=== PATIENT | female | born 1975 | race Caucasian/White ===

== ENCOUNTER 2021-06-26 08:41 | Emergency (ER) | payer OTHER, SELFPAY ==
[2021-06-26 08:52] VITALS: BP 103/76; PULSE 83; RESP 16; TEMP 36.7; O2SAT 99
--- NOTE | 2021-06-26 09:01 | ED.URI ---
HPI - URI/Sore Throat General Chief Complaint: Upper Respiratory Infection Stated Complaint: LOYOLA/COUGH/NO TASTE/SMELL Time Seen by Provider: 06/26/21 09:01 Source: patient and RN notes reviewed Mode of arrival: ambulatory Limitations: no limitations History of Present Illness HPI Narrative: 46-year-old female presents to the [facility] with complaints of headache, cough no taste, smell. Had spent 2 hours with someone who was tested positive for Covid on Wednesday. Reports body aches, headache and cough. Denies chest pain or shortness of breath. No abdominal pain. Related Data Allergies Allergy/AdvReac Type Severity Reaction Status Date / Time No Known Allergies Allergy Verified 06/26/21 09:16 Review of Systems Review of Systems: All systems reviewed & are unremarkable except as noted in HPI and below Constitutional: Constitutional: Reports no additional constitutional complaints, Denies chills and Denies fever(s) Eyes: Eyes: Reports no additional eye complaints ENT: Reports as per HPI Cardiovascular: Cardiovascular: Reports no additional cardiovascular complaints Respiratory: Respiratory: Reports no additional respiratory complaints, Reports cough, Denies dyspnea and Denies wheezing Gastrointestinal: Gastrointestinal: Reports no additional gastrointestinal complaints, Denies abdominal pain, Denies nausea and Denies vomiting Musculoskeletal: Musculoskeletal: Reports no additional musculoskeletal complaints Integumentary/Breasts: Skin/Breast: Reports system reviewed and no additional complaints, except as docu Neurologic: Reports system reviewed and no additional complaints, except as documented Psychiatric: Psychiatric: Reports no additional psychiatric complaints Endocrine: Endocrine: Reports as per HPI and Reports fatigue Allergic/Immunologic: Allergic/Immunologic: Reports no additional allergic/immunologic complaints [facility] Family History Family History Father Family history of mental disorder Mother Hypertension Grandparent Family history of malignant neoplasm of bone Social History Social History Smoking status: Heavy tobacco smoker Alcohol intake: current Comments At the time of my signature, I reviewed and agree with the nursing past medical, surgical, social, and family history. There is no relevant family history pertinent to the patient complaint. Exam Const: General: no acute distress, alert and ill appearing acutely Nutritional Appearance: well nourished Orientation/consciousness: patient oriented x3 Limitations: no limitations HENMT: Head: normal to inspection Ears: external ears normal, TM's normal bilaterally and EAC's normal Eyes: Conjunctivae: conjunctivae normal Pupils: Equal, round and reactive pupils present Neck: Neck: normal visual inspection, no lymphadenopathy and no meningeal signs Chest: Chest palpation & inspection: normal inspection of the chest Resp: Effort & Inspection: normal respiratory effort and no use of accessory muscles Auscultation: clear to auscultation bilaterally, no crackles, no rales, no rhonchi and no wheezes Cardio: Rate: regular rate Rhythm: regular rhythm : General: Yes no CVA tenderness Urinary Catheter: Urinary Catheter: patent and draining Back/Spine/Pelvis: Back: no CVA tenderness Skin: General skin exam: normal color Rashes: no rashes Wounds: no wounds Neuro: General: patient oriented x3, moves all extremities, no meningeal signs and no focal motor deficits Speech: normal speech Gait exam (Neuro): Normal gait present Extrem: General: normal to inspection Psych: Appearance: grossly normal and well kempt Mental Status: mental status grossly normal Affect: normal affect Attitude: cooperative Thought content: Yes Normal thought content present Course Course Emergency Course: Discharge instructions reviewed with patient, as well
[2021-06-27 18:35] LABS: SARS-CoV-2 RNA PCR Positive
== END 2021-06-26 09:30 | disposition home or self-care (01) ==
PROVIDERS: Emergency Provider Nurse Practitioner; PCP Family Medicine
DX: U07.1 COVID-19 (principal); F17.200 Nicotine dependence, unspecified, uncomplicated
CPT/HCPCS: 99203; C9803; G0463; U0003; U0005

== ENCOUNTER 2021-11-03 14:25 | Emergency (ER) | payer OTHER, SELFPAY ==
--- NOTE | ~2021-11-03 | XR_ITS ---
XR wrist LT min 3V DATE: 11/03/2021 16:40 INDICATION: Left wrist injury today. Anterolateral lump. TECHNIQUE: 4 views COMPARISON: None FINDINGS: No fracture or dislocation, periosteal reaction or bone destruction, joint space narrowing, erosive change or chondrocalcinosis. IMPRESSION: Negative Reviewed, dictated and finalized at location A. RY CONTROL TENDER IMPRESSION: Negative
[2021-11-03 14:26] VITALS: BP 130/61; PULSE 69; RESP 18; TEMP 36.3; O2SAT 100
--- NOTE | 2021-11-03 16:30 | ED.GENADULT ---
HPI - General Adult General Chief complaint: Extremity Injury, Upper Stated complaint: LEFT WRIST INJURY Time Seen by Provider: 11/03/21 14:52 Source: patient Mode of arrival: ambulatory Limitations: no limitations History of Present Illness HPI narrative: Patient presents for evaluation of left wrist injury. She indicates she works at [employer] and was pulling a pallet when she felt a pop in her left wrist. She has noted a bulge in the area since that time. She denies any significant pain. She is right hand dominant. No paresthesias. No additional complaints or concerns. Related Data Allergies Allergy/AdvReac Type Severity Reaction Status Date / Time No Known Allergies Allergy Verified 11/03/21 14:39 Review of Systems Review of Systems: CONSTITUTIONAL: Denies fever, chills, or sweats. EYES: Denies visual changes, redness, or discharge. ENT: Denies rhinorrhea, congestion, sore throat, or otalgia. CARDIOVASCULAR: Denies chest pain, palpitations, or edema. RESPIRATORY: Denies cough or dyspnea. GASTROINTESTINAL: Denies abdominal pain, nausea, vomiting, or diarrhea. GENITOURINARY: Denies dysuria or hematuria. SKIN: Reports bulge in left wrist. Denies rash or itching. MUSCULOSKELETAL: Denies back pain, joint pain, or myalgia. NEUROLOGIC: Denies headache, numbness, dizziness, or weakness. PSYCHIATRIC: Denies anxiety or depression. [facility] Past Medical History Medical History (Updated 11/03/21 @ 17:49 by Juan Jose Boothe, COUNTY RECORDS MANAGEMENT OFFICER, ) No pertinent past medical history Surgical History Surgical History No pertinent past surgical history Family History Family History Father Family history of mental disorder Mother Hypertension Grandparent Family history of malignant neoplasm of bone Social History Social History Smoking status: Heavy tobacco smoker Alcohol intake: current Substance use: never Living arrangements: with family Gender identity (if verbalized by the patient): Female Sexual Orientation (if Verbalized by the Patient): Straight or Heterosexual Spiritual care concerns: No Exam Narrative: GENERAL: Well-appearing, well-nourished, and in no acute distress. HEAD: Normocephalic, atraumatic. EYES: PERRLA and EOMI. ENT: Nares clear, no rhinorrhea or epistaxis. Mucous membranes moist. Oropharynx without tonsillar hypertrophy exudate or other lesions. Bilateral TMs pearly stevens nonbulging NECK: Supple. No adenopathy or masses. No carotid bruits or JVD CHEST: Clear to auscultation. No respiratory distress. No wheezes rales or rhonchi HEART: Regular rate and rhythm. No murmur heard. Normal peripheral pulses. ABDOMEN: Soft, nontender, nondistended, normal active bowel sounds. EXTREMITIES: Normal range of motion. No edema. SKIN: Approximately 1 cm indurated mass to medial aspect of left wrist. NEURO: No focal deficits. Alert and oriented x3. PSYCH: Normal mood and affect. Course Course Emergency Course: This is a 46-year-old female who presented with concerns regarding a bulge in left wrist after pulling a pallet at work earlier today. Exam is consistent with ganglion cyst. X-ray was negative. Advised velcro wrist splint may be helpful. She was provided with ishmael wrap as velcro wrist splint not available. NSAIDs may help. Follow up with ortho and return for worsening symptoms. Pt in agreement with plan of care. Vital Signs Vital signs: Vital Signs Temperature 36.3 C L 11/03/21 14:26 Pulse Rate 69 11/03/21 14:26 Respiratory Rate 18 11/03/21 14:26 Blood Pressure 130/61 11/03/21 14:26 Pulse Oximetry 100 11/03/21 14:26 Temperature 36.3 C L 11/03/21 14:26 Pulse Rate 69 11/03/21 14:26 Respiratory Rate 18 11/03/21 14:26 Blood Pressure 130/61 11/03/21 14:26 Pulse Oximetry 100 02
== END 2021-11-03 18:23 | disposition home or self-care (01) ==
PROVIDERS: Emergency Provider Nurse Practitioner; PCP Family Medicine
DX: M67.432 Ganglion, left wrist (principal); F17.200 Nicotine dependence, unspecified, uncomplicated
CPT/HCPCS: 73110; 99283

== ENCOUNTER 2024-01-21 15:30 | Emergency (ER) | payer OTHER, SELFPAY ==
[2024-01-21 15:31] VITALS: BP 129/73; PULSE 73; RESP 16; TEMP 37.1; O2SAT 99
--- NOTE | 2024-01-21 17:02 | ED.UPPEXIN ---
HPI - Extremity Injury (Upper) General Chief Complaint: Extremity Injury, Upper Stated Complaint: arm injury Time Seen by Provider: 01/21/24 16:14 Source: patient Mode of arrival: ambulatory Limitations: no limitations History of Present Illness HPI narrative: Patient is right-hand dominant. Today while at work she accidentally caught her right forearm on a nail which punctured the skin somewhat deeply by her report but at an angle. No pain medications taken yet though she states she isn't really having pain. Does not know last tetanus shot. . Related Data Allergies Allergy/AdvReac Type Severity Reaction Status Date / Time BEE STINGS Allergy Mild Hives Uncoded 01/21/24 15:34 [facility] Past Medical History Medical History (Updated 01/24/24 @ 06:34 by Viola Shaw MD) No pertinent past medical history Right hand dominant Surgical History Surgical History (System 11/17/21 @ 16:42 by Carolyne Son) No pertinent past surgical history Family History Family History Father Family history of mental disorder Mother Hypertension Grandparent Family history of malignant neoplasm of bone Social History Social History (Updated 01/24/24 @ 06:34 by Viola Shaw MD) Smoking status: Heavy tobacco smoker Alcohol intake: current Substance use: never Living arrangements: with family Occupation/Education: occupation Additional occupation/education comments: [employer] Gender identity (if verbalized by the patient): Female Sexual Orientation (if Verbalized by the Patient): Straight or Heterosexual Spiritual care concerns: No Exam Narrative: GENERAL: Well-appearing, well-nourished, and in no acute distress. HEAD: Normocephalic, atraumatic. EYES: Non injected, non icteric ENT: Nares clear, no rhinorrhea or epistaxis. NECK: Supple. CHEST: Speaking in full sentences. No respiratory distress. HEART: Regular rate and rhythm. Strong radial pulse. ABDOMEN: Soft, nondistended. EXTREMITIES: Normal range of motion. No edema. SKIN: Warm, dry. 1cm wound right forearm, bleeding well controlled. No palpable foreign body remaining. No cellulitis or induration. NEURO: No focal deficits. Alert and oriented x3. PSYCH: Normal mood Course Vital Signs Vital signs: Vital Signs Temperature 98.7 F 01/21/24 15:31 Pulse Rate 73 01/21/24 15:31 Respiratory Rate 16 01/21/24 15:31 Blood Pressure 129/73 01/21/24 15:31 Pulse Oximetry 99 01/21/24 15:31 Temperature 98.7 F 01/21/24 15:31 Pulse Rate 73 01/21/24 15:31 Respiratory Rate 16 01/21/24 15:31 Blood Pressure 129/73 01/21/24 15:31 Pulse Oximetry 99 01/21/24 15:31 MDM - Extremity Injury (Upper) MDM Narrative Medical decision making narrative: In the emergency department they are afebrile with vital signs within normal limits. Patient offered pain medication but she declined. Plain film imaging had initially been ordered based on chief complaint however the wound does appear to be fairly superficial and appears that the nail traversed the area of injury parallel to rather than perpendicular to bony structures thus very low suspicion for fracture. Patient's tetanus updated. Wound irrigated and bleeding well controlled. Bandage to be applied and discussed wound care. Stable for discharge, advised to follow up as needed. Discharge Plan Discharge Clinical Impression: Puncture wound of forearm Patient Disposition: Home, Self-Care Condition: Stable Instructions: Antibiotic Form, Puncture Wound (ED) Additional Instructions: You can take acetaminophen/Tylenol for pain as needed. Your tetanus shot was updated today. Follow up with Your primary care provider as needed. Return to the emergency department with any new or worsening symptoms. Prescriptions: New acetaminophen 500 mg capsule 1,000 mg PO Q6H PRN (Reason: pain) Qty: 20
[2024-01-21] MEDS: TETANUS,DIPHTHERIA,AC PERTUSSIS ADULT (0.5 ML) BOOSTRIX IM (17:11)
== END 2024-01-21 17:17 | disposition home or self-care (01) ==
PROVIDERS: Emergency Provider Student in an Organized Health Care Education/Training Program; PCP Family Medicine
DX: S51.831A Puncture wound without foreign body of right forearm, initial encounter (principal); W45.0XXA Nail entering through skin, initial encounter; Z23 Encounter for immunization
CPT/HCPCS: 90471; 90715; 99282

== ENCOUNTER 2025-06-21 01:43 | Day surgery (SDC) | payer BC, SELFPAY ==
[2025-06-11 10:21] VITALS: BMI 26.6
--- OUTSIDE RECORDS SUMMARY | 2025-06-21 01:45 | XMS_ITS | Clinical Summary ---
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 Gender Identity Not on file Sexual Orientation Not on file Plan of Treatment Health Maintenance Due Date Last Done Comments Cervical Cancer Screening Pa p Smear (Age 30 to 64) Every 3 Years 1975 Colorectal Cancer Screening Colonoscopy (10 Years) 1975 Annual Physical 1978 Hepatitis C 1993 DTaP, Tdap and Td Vaccines ( 1 - Tdap) 1994 Hepatitis B Vaccines (1 of 3 - 19+ 3-dose series) 1994 Cervical Cancer Screening Pa p with HPV Testing (Age 30 to 64) Every 5 Years 2005 Cervical Cancer Screening with HPV 2005 Mammogram Screening 2015 Pneumococcal Vaccine: 50+ Ye ars (1 of 1 - PCV) 2025 Zoster Vaccines (1 of 2) 2025 COVID-19 Vaccine ( - 2023-2 5 season) 2025 Meningococcal B Vaccine Aged Out No l onger eligible based on patient's age to complete this topic Meningococcal Vaccine Aged Out No bogdan maryann eligible based on patient's age to complete this topic RSV Immunizations Under 20 Months Aged Out No longer eligible based on patient's age to complete this topic Insurance [employer]
[2025-06-21 07:37] VITALS: BP 104/77; PULSE 88; RESP 20; TEMP 35.9; O2SAT 97; BMI 25.7
--- NOTE | 2025-06-21 07:41 | P.PNAN_ITS ---
Anes - Initial Pre Proc Eval Procedure: Operation Date: 06/21/25 09:00 Proposed Procedures p Screening Colonoscopy - Ethan Nye MD Date/Time: 06/21/25 07:41 Surgeon: Ethan Nye MD Pre Op Diagnosis: Screening Patient Data Age: 50 Gender: F Height: 1.75 m Weight: 79.2 kg Last Vital Signs Temp 35.9 C L 06/21/25 07:37 Pulse 88 06/21/25 07:37 Resp 20 06/21/25 07:37 BP 104/77 06/21/25 07:37 Pulse Ox 97 06/21/25 07:37 O2 Del Method Room Air 06/21/25 07:37 Allergies Allergy/AdvReac Type Severity Reaction Status Date / Time BEE STINGS Allergy Mild Hives Uncoded 03/01/25 13:11 Home Medications ?Medication ?Instructions ?Recorded ?Confirmed ?Type No Home Medications 03/01/25 06/11/25 H istory Patient hx anesthesia problems: none Family hx anesthesia problems: none Results Review: All pre-operative results and documents have been reviewed as part of the pre- operative evaluation. [facility] Past Medical History Medical History Right hand dominant No pertinent past medical history Surgical History Surgical History No pertinent past surgical history Family History Family History Father Alcohol use disorder Mother Hypertension CLL (chronic lymphocytic leukemia) Grandparent Family history of malignant neoplasm of bone Social History Social History Social History: Smoking packs per day: 1 Smoking cigarettes per day: 20.0 Years smoked: 30 Smoking pack-years: 30.00 Smoking status: Current every day smoker Tobacco type: cigarettes Alcohol intake: current Alcohol use details: rarely Substance use: never Substance use type: does not use Do You Feel Safe in your Home?: Yes Lack of Transportation: No Lack of Food: Never True Current Housing: I Have Housing Concerned About Future Housing: No Difficulty Paying Gas/Electric Bills: No Difficulty Paying for Meds: No Currently Unemployed: No Education: Don't Know Difficulty w/ Childcare or Family Care: No Living arrangements: with family Additional living arrangements comments: with sp Occupation/Education: occupation Additional occupation/education comments: [employer] Gender identity (if verbalized by the patient): Female Sexual Orientation (if Verbalized by the Patient): Straight or Heterosexual Anes - Eval Final PreProcedure Day of Procedure 06/21/25 07:41 Patient weight: normal Heart: regular rate and rhythm Lungs: clear to auscultation Airway: Mallampati scale class II Neurological: alert and oriented Last oral intake: >/= 8 hours ASA classification: II Emergent: no Anesthetic plan: proceed Anesthesia type and monitoring: general GIVS and standard monitoring Results Review: All pre-operative results and documents have been reviewed as part of the pre- operative evaluation. Informed Consent: The patient's anesthetic plan and its attendant risks and benefits were discussed with the patient/family/POA. Questions were solicited and answers provided to the satisfaction of the patient/family/POA.
[2025-06-21] MEDS: LACTATED RINGERS 1,000 ML 150 ML IV CONT (07:45)
--- NOTE | 2025-06-21 08:33 | P.HP_ITS ---
History of Present Illness History of Present Illness Consent: Risks, benefits, and alternatives have been discussed and questions answered. Patient agrees to proceed with procedure. Chief complaint: Screening Narrative: Disha Albarado is a 50 year old female here for first screening colonoscopy Review of Systems Review of Systems: All systems reviewed & are unremarkable except as noted in HPI and below PMFSH Past Medical History Medical History (Updated 06/21/25 @ 08:34 by Ethan Nye MD) Colon cancer screening Right hand dominant No pertinent past medical history Surgical History Surgical History No pertinent past surgical history Family History Family History Father Alcohol use disorder Mother Hypertension CLL (chronic lymphocytic leukemia) Grandparent Family history of malignant neoplasm of bone Social History Social History Social History: Smoking packs per day: 1 Smoking cigarettes per day: 20.0 Years smoked: 30 Smoking pack-years: 30.00 Smoking status: Current every day smoker Tobacco type: cigarettes Alcohol intake: current Alcohol use details: rarely Substance use: never Substance use type: does not use Do You Feel Safe in your Home?: Yes Lack of Transportation: No Lack of Food: Never True Current Housing: I Have Housing Concerned About Future Housing: No Difficulty Paying Gas/Electric Bills: No Difficulty Paying for Meds: No Currently Unemployed: No Education: Don't Know Difficulty w/ Childcare or Family Care: No Living arrangements: with family Additional living arrangements comments: with sp Occupation/Education: occupation Additional occupation/education comments: [employer] Gender identity (if verbalized by the patient): Female Sexual Orientation (if Verbalized by the Patient): Straight or Heterosexual Meds Home Medications and Allergies Home Medications ?Medication ?Instructions ?Recorded ?Confirmed ?Type No Home Medications 03/01/25 06/11/25 H istory Allergies Allergy/AdvReac Type Severity Reaction Status Date / Time BEE STINGS Allergy Mild Hives Uncoded 03/01/25 13:11 Vital Signs Vital Signs - 24 hr 06/21/25 07:37 Temperature 96.7 F L Pulse Rate 88 Respiratory Rate 20 Blood Pressure 104/77 Pulse Oximetry 97 Oxygen Delivery Room Air Exam Const: General: comfortable and no acute distress HENMT: Face/Nose/Sinus: Normal nares present Eyes: General: appearance normal, both eyes and all related structures Neck: Neck: no JVD Resp: Auscultation: clear to auscultation bilaterally Cardio: Rate: regular rate Rhythm: regular rhythm GI: Inspection: non-distended GI Palp: Yes Soft to palpation Skin: General skin exam: normal color Neuro: Speech: normal speech Extrem: General: normal to inspection Psych: Mental Status: mental status grossly normal Assessment and Plan Assessment and plan (1) Colon cancer screening: Code(s): Z12.11 - Encounter for screening for malignant neoplasm of colon Status: Acute Assessment and Plan: colonoscopy
[2025-06-21 08:55] VITALS: BP 90/59; PULSE 62; RESP 24; O2SAT 96
--- NOTE | 2025-06-21 08:57 | S_PTH ---
PATIENT: Disha Albarado LOC: [facility]#:[id number] AGE/SX: 50/F ROOM: RE06/21/[address]: Ethan Nye MD : 1975 BED: DIS: 06/21/2025 SPEC #: [id number] RECD: 06/21/25 10:37 STATUS: RYDER REQ #: [id number] YOVANI: 06/21/25 08:[address]: Ethan Nye DEPT: [facility] Surgical RECD BY: Danielle Bryant ENTERED: 06/21/25 10:37 SP TYPE: Surgical OTHR DR: Jimmy Wyman MD Tissues: A - Colon Polypectomy Procedures: Hematoxylin and Eosin Stain Gross and Microscopic Level 4
[2025-06-21 09:05] VITALS: BP 91/70; PULSE 60; RESP 21; O2SAT 97
[2025-06-21 09:15] VITALS: BP 96/57; PULSE 60; RESP 20; O2SAT 100
== END 2025-06-21 09:27 | disposition home or self-care (01) ==
PROVIDERS: PCP Family Medicine; Referring Provider Physician Assistant Medical; Visit Provider Internal Medicine Gastroenterology
PROC: 0DJD8ZZ Inspection of Lower Intestinal Tract, Via Natural or Artificial Opening Endoscopic (ICD-10-PCS; CPT 45378; principal; 2025-06-21 09:00)
DX: Z12.11 Encounter for screening for malignant neoplasm of colon (principal); D12.3 Benign neoplasm of transverse colon; K64.8 Other hemorrhoids; F17.210 Nicotine dependence, cigarettes, uncomplicated; Z80.8 Family history of malignant neoplasm of other organs or systems
CPT/HCPCS: 45380; 88305; J2003; J2704; J7120

== ENCOUNTER 2025-07-02 15:19 | Outpatient (CLI) | payer BC, OTHER, SELFPAY ==
--- NOTE | ~2025-07-02 | XR_ITS ---
EXAMINATION: XR knee LT 3V, 07/02/2025 16:00 CDT HISTORY: M25.562 - Pain in left knee COMPARISON: No comparisons available. Findings: No acute fracture or malalignment. No significant degenerative changes. Soft tissues unremarkable. Impression: No acute fracture or malalignment. Reviewed, dictated and finalized at location P. Impression: No acute fracture or malalignment.
== END 2025-07-02 15:20 | disposition home or self-care (01) ==
PROVIDERS: PCP Family Medicine; Visit Provider Physician Assistant Medical
DX: M25.562 Pain in left knee (principal)
CPT/HCPCS: 73562

== ENCOUNTER 2025-08-30 14:12 | Outpatient (CLI) | payer BC, SELFPAY ==
--- NOTE | ~2025-08-30 | MM_ITS ---
EXAMINATION: MM screening francisco BI w gerardo HISTORY: Screening. TECHNIQUE: Craniocaudal and mediolateral oblique 3-D tomosynthesis images were obtained and synthetic 2-D images were generated. CAD analysis was submitted and interpreted. COMPARISON: None available. BREAST PARENCHYMAL COMPOSITION: Not Dense: There are scattered areas of fibroglandular FINDINGS: No suspicious masses are seen. There are no suspicious calcifications. No unexplained architectural distortion is seen. There are no skin or nipple abnormalities identified. There is no adenopathy seen on the images submitted. IMPRESSION: No mammographic evidence to suggest malignancy is seen. The patient may return to screening mammography as per ACR guidelines. BI-RADS 1 - Negative. Reviewed, dictated and finalized at location C. 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
== END 2025-08-30 14:13 | disposition home or self-care (01) ==
LOC: MICIMG 14:13
PROVIDERS: PCP Physician Assistant Medical; Visit Provider Physician Assistant Medical
DX: Z12.31 Encounter for screening mammogram for malignant neoplasm of breast (principal)
CPT/HCPCS: 77063; 77067